=== PATIENT | male | born 1955 | race Caucasian/White ===

== ENCOUNTER → 2018-05-08 | Outpatient (CLI) | payer BC ==
--- NOTE | 2018-05-08 22:28 | MR ---
EXAMINATION TYPE: MR shoulder LT wo con DATE OF EXAM: 05/08/2018 COMPARISON: Plain film 04/18/2018 HISTORY: Pain in left shoulder TECHNIQUE: Multiplanar, multisequence imaging of the left shoulder is performed without contrast. FINDINGS: Rotator Cuff: There is abnormal increased signal involving the rotator cuff, at the level of the inse rtion of the tendon appears attenuated at both the insertion of the supraspinatus and infraspinatus t endons. Acromioclavicular Joint: Hypertrophic change at the acromioclavicular joint causes some mass effect o n the musculotendinous junction of supraspinatus Glenohumeral Joint: Maintained Labrum: The labrum appears grossly intact given limitation of non-arthrogram study. Biceps Tendon: The long head of biceps tendon is not well-defined, coronal image #10 of the T2 data s et shows an attenuated tendon which lies within the bicipital groove. Bone marrow signal: Pseudocysts are present within the humeral head. Other: Distal acromial spur suspected. Small joint effusion is also present, there is fluid along the subscapularis tendon at the musculotendinous junction, fluid signal present in the subacromial subde ltoid bursa IMPRESSION: Correlate for impingement, there is tendinopathy, likely partial thickness tear the rotator cuff tend on.
== END | disposition home or self-care (01) ==
LOC: RADMRIMAIN 19:20
PROVIDERS: ATTEND Orthopaedic Surgery
DX: M67.912 Unspecified disorder of synovium and tendon, left shoulder (principal)

== ENCOUNTER → 2018-05-31 | Outpatient (CLI) | payer BC ==
[2018-05-31 07:14] LABS: Basophils % (A) 1 %; Eosinophils # (A) 0.1 k/uL (0-0.7); Eosinophils % (A) 1 %; HCT 49.1 % (39.0-53.0); HGB 15.3 gm/dL (13.0-17.5); Lymphocytes # (A) 1.2 k/uL (1.0-4.8); Lymphocytes % (A) 23 %; MCH 27.5 pg (25.0-35.0); MCHC 31.2 g/dL (31.0-37.0); Mean Platelet Volume 6.6; Monocytes # (A) 0.4 k/uL (0-1.0); Monocytes % (A) 7 %; Neutrophils # (A) 3.5 k/uL (1.3-7.7); Neutrophils % (A) 66 %; Platelet Count 260 k/uL (150-450); RBC 5.57 m/uL (4.30-5.90); RDW 13.1 % (11.5-15.5); WBC 5.3 k/uL (3.8-10.6)
[2018-05-31 07:23] LABS: Potassium 4.5 mmol/L (3.5-5.1)
== END | disposition home or self-care (01) ==
LOC: LABPAT 06:32
PROVIDERS: ATTEND Orthopaedic Surgery
DX: Z01.812 Encounter for preprocedural laboratory examination (principal); M75.42 Impingement syndrome of left shoulder
CPT/HCPCS: 36415; 80051; 85025

== ENCOUNTER → 2018-06-13 | Day surgery (SDC) | payer BC ==
[2018-06-07 10:14] VITALS: BMI 30.2
--- NOTE | 2018-06-12 18:36 | HP ---
HISTORY AND PHYSICAL DATE OF SURGERY: 06/13/2018 Maik Hopkins is a 63-year-old patient seen with progressive left shoulder pain. We discussed treatment options. He elected to proceed with arthroscopy. Consent was obtained. PAST MEDICAL HISTORY: Noncontributory. PAST SURGICAL HISTORY: Knee arthroscopy. DAILY MEDICATIONS: None. ALLERGIES: NONE REPORTED. SOCIAL HISTORY: Patient denies tobacco use. PHYSICAL EVALUATION OF LEFT SHOULDER: Flexion 140 degrees, abduction 140 degrees. External rotation is 40 degrees with weakness. Tenderness along the anterolateral acromion and rotator cuff insertion site. Impingement sign positive at 90 degrees. Distal neurovascular exam is intact. RADIOGRAPHS: Radiographs were obtained of left shoulder showing type 2 anterior acromion, acromioclavicular joint osteoarthritis, cystic changes of the greater tuberosity. Left shoulder MRI revealed impingement, partial biceps tendon tear, partial rotator cuff tear and acromioclavicular joint osteoarthritis. IMPRESSION: Left shoulder impingement with rotator cuff tear, acromioclavicular joint osteoarthritis and partial biceps tendon tear. PLAN: Left shoulder arthroscopy with subacromial decompression, possible arthroscopic rotator cuff repair, probable Lois procedure and debridement. MMODL / IJN: [id number] /
[~2018-06-13] MED LIST: DEXAMETHASONE SOD PHOSPHATE 10 MG/ML 1 ML VIAL IV ONE; HYDROmorphone 1 MG/ML 1 ML SYRINGE IVP PRN; LACTATED RINGERS 1,000 ML IV ONE; LACTATED RINGERS 1,000 ML IV SCH; LIDOCAINE 1% 20 ML VIAL (10MG/ML) FOR IV START INTRADERMA ONE; LIDOCAINE 1% INJ 10MG/ML (20 ML MDV) ONE; MIDAZOLAM 2 MG/2 ML VIAL IV PRN; ONDANSETRON 4 MG/2 ML VIAL IVP ONE; PHENYLEPHRINE-0.9% NACL SYG 1 MG/10 ML SYRINGE ONE; PROPOFOL 10 MG/ML 20 ML VIAL IV ONE; ROCURONIUM BROMIDE 10 MG/ML 10 ML VIAL IV ONE; ROPIVACAINE 5 MG/ML 30 ML VIAL ONE; SCOPOLAMINE 1.5MG/72HR PATCH TRANSDERM ONE; SUCCINYLCHOLINE CHLORIDE 100 MG/5 ML SYR IV ONE; ceFAZolin IN SWFI 2 GM/20 ML SYRINGE IVP ONE; fentaNYL (PF) 50 MCG/ML 2 ML AMP ONE
--- NOTE | 2018-06-13 09:45 | P.OP ---
Date of Procedure: 06/13/18 Preoperative Diagnosis: Left shoulder impingement Postoperative Diagnosis: 1. Left shoulder rotator cuff tear 2. Left shoulder impingement 3. Left shoulder acromioclavicular joint osteoarthritis 4. Left shoulder partial long head biceps tendon tear Procedure(s) Performed: 1. Left shoulder arthroscopic rotator cuff repair 2. Left shoulder arthroscopic subacromial decompression 3. Left shoulder arthroscopic Lois procedure 4. Left shoulder arthroscopic biceps tenotomy Implants: 4Arthrex swivel lock anchors Anesthesia: GETA, regional (Interscalene block) Surgeon: Ced Devine Sole Stitcher Hand #1: Hung Flores Estimated Blood Loss (ml): 12 Pathology: none sent Condition: stable Disposition: PACU Indications for Procedure: 53-year-old patient seen with progressive left shoulder pain. After having treatment options discussed, he elected to proceed with arthroscopy. Operative Findings: See description of procedure Description of Procedure: Patient underwent an interscalene block by department of anesthesia for postoperative pain control. The patient was then taken to the operative suite. The patient underwent a general anesthetic by the department of anesthesia. The patient was placed into a lateral position and secured. There was appropriate padding of the bony prominence. Left shoulder was then prepped and draped in normal sterile orthopedic fashion. We placed the extremity in 10 pounds of longitudinal traction. A posterior incision was now made for a posterior working portal site. The trocar and cannula were inserted into the glenohumeral joint. Arthroscopy was initiated. Spinal needle was now inserted anteriorly, to ascertain the anterior working portal site. An incision was now made in that area, a trocar was inserted followed by a probe. There was partial tearing long head biceps tendon with hyperemia. There were grade 1 chondromalacia changes of the glenoid with no osteochondral tears. I could visualize a full-thickness rotator cuff tear. The labrum appeared somewhat diminutive but no tears. I performed an arthroscopic biceps tenotomy. The residual labrum/anchor was probed and found to be stable. Instruments now removed from the glenohumeral joint. Utilizing the posterior working portal site, the trocar and cannula were inserted into the subacromial space. Arthroscopy initiated. I made an incision 2 fingerbreadths lateral to the acromion. I introduced my trocar followed by my ArthroCare ablator. I now began ablating thick subacromial bursal tissue, which exposed the undersurface of the anterior acromion. There was diminished subacromial space. There was a very prominent anterior acromion. A motorized bur was introduced and a subacromial decompression was performed. I also excised some osteophytes off the inferior aspect of the distal clavicle. The AC joint was visualized and noted to be fairly arthritic. The motorized bur was introduced in the anterior portal site and a Lois procedure was performed without difficulty, decompressing the AC joint nicely. I turned my attention to the rotator cuff. There was a 2 cm rotator cuff tear. I debrided the margins getting down to stable tendon tissue. The defect now measured approximately 2.5 cm. It was freely mobile over the footprint. I introduced my motorized bur and abraded the footprint area, getting some petechial bleeding. I now made an accessory portal site off the lateral aspect of the acromion. I punched 2 holes medial for medial row fixation with the assistance of Ray KHAN carefully tapping the punch with a mallet as I held the punch and the camera. I now introduced both anchors into the pre-punched holes and Ray KHAN tapped them with the mallet as I held anchors and the camera. Ray KHAN now screwed the anchors in place a while I held the anchor guide and camera. All 8 limbs of suture were now passed through good bites of rotator cuff tendon. I now punched 2 holes for lateral row fixation again I held the punch and camera while Ray KHAN used a mallet to tap in the punch. We now passed sutures through both anchors and individually I introduced the anchors into the pre-punch holes I held the anchor guide in position with one hand holding the camera with the other hand while Ray KHAN tensioned the sutures and screwed in the anchors one at a time. All residual suture limbs were now clipped. We had good compression of the tendon along the entire footprint. I injected 1 mL Renue intra-articular. Instruments now removed from the portal sites. All portal sites were approximated with nylon suture. Sterile dressings were applied followed by a shoulder immobilizer. Hung KHAN assisted in this complex case. The patient was awakened, transferred to a bed, and taken to recovery in stable condition.
[2018-06-13 09:48] VITALS: TEMP 97.2
[2018-06-13 09:58] VITALS: RESP 16
[2018-06-13 11:19] VITALS: PULSE 68
[2018-06-13 11:40] VITALS: BP 129/81
--- NOTE | 2018-06-14 07:08 | P.ONQ ---
Anesthesiology Proc Note - PNB - Peripheral Nerve Block Performed Left Interscalene Single Time Out Performed: Yes Procedure Start Time: 06:57 Procedure Stop Time: 07:09 Indication: Acute Post-Operative Pain, Requested by physician Sedation Type: Sedate with meaningful contact maintained Preparation: Sterile Prep Position: Supine Needle Size: 50mm (2") Needle Gauge: 21 Technique: Ultrasound Injectate: 0.5% Ropivacaine (see comment for volume) (ropi .5% 15cc each side) Blood Aspirated: No Pain Paresthesia on Injection Noted: No Resistance on Injection: Normal Events: Uneventful and Well Tolerated
== END | disposition home or self-care (01) ==
LOC: OR 05:45
PROVIDERS: ATTEND Orthopaedic Surgery
DX: M75.122 Complete rotator cuff tear or rupture of left shoulder, not specified as traumatic (principal); M75.42 Impingement syndrome of left shoulder; M19.012 Primary osteoarthritis, left shoulder; S46.112A Strain of muscle, fascia and tendon of long head of biceps, left arm, initial encounter; X58.XXXA Exposure to other specified factors, initial encounter; M94.212 Chondromalacia, left shoulder; M25.712 Osteophyte, left shoulder; Z79.899 Other long term (current) drug therapy
CPT/HCPCS: 64415; 29824; 29827; 29826; C1713 ×4; C1765; J2250; J2405; J2001; J3010; J2795; J2370; J0330; J2704; J0690

== ENCOUNTER → 2019-06-18 | Outpatient (CLI) | payer BC ==
--- NOTE | 2019-06-19 02:35 | MR ---
EXAMINATION TYPE: MR knee LT wo con DATE OF EXAM: 06/18/2019 COMPARISON: None HISTORY: Pain in left knee TECHNIQUE: Multiplanar, multisequence imaging of the left knee is performed without IV contrast. FINDINGS: The anterior and posterior cruciate ligaments are intact. There is mild knee joint effusion. The late ral meniscus shows very minimal increased signal on the infra surface of the posterior horn. There is horizontal tear with significant thinning of the posterior horn of the medial meniscus. Ther e is intrasubstance horizontal tear of the anterior horn medial meniscus. There is some narrowing of the medial joint space. The collateral ligaments appear intact. There is no evidence of a fracture. T here is no bony destructive process. Patellofemoral joint is intact. There is rounded 12 mm area of b one at the posterior aspect of the lateral femoral condyle that appears outside of the joint and coul d be an osteophyte. IMPRESSION: Osteoarthritic narrowing of the medial joint space. Horizontal tears of the posterior horn and anteri or horn of the medial meniscus with meniscal thinning. No evidence of ligamentous tear. No fracture. Joint effusion. Small 2.5 x 0.8 cm popliteal cyst noted.
== END | disposition home or self-care (01) ==
LOC: RADMRIMAIN 18:47
PROVIDERS: ATTEND Orthopaedic Surgery
DX: M17.12 Unilateral primary osteoarthritis, left knee (principal); S83.242A Other tear of medial meniscus, current injury, left knee, initial encounter

== ENCOUNTER → 2019-07-15 | Outpatient (CLI) | payer BC ==
[2019-07-15 17:43] LABS: Potassium 4.3 mmol/L (3.5-5.1)
[2019-07-15 18:08] LABS: Basophils # (A) 0.1 k/uL (0-0.2); Basophils % (A) 1 %; Eosinophils # (A) 0.2 k/uL (0-0.7); Eosinophils % (A) 2 %; HCT 45.3 % (39.0-53.0); HGB 14.6 gm/dL (13.0-17.5); Lymphocytes # (A) 1.5 k/uL (1.0-4.8); Lymphocytes % (A) 23 %; MCH 28.1 pg (25.0-35.0); MCHC 32.3 g/dL (31.0-37.0); MCV 87.1 fL (80.0-100.0); Mean Platelet Volume 6.5; Monocytes # (A) 0.4 k/uL (0-1.0); Monocytes % (A) 6 %; Neutrophils # (A) 4.4 k/uL (1.3-7.7); Neutrophils % (A) 66 %; Platelet Count 305 k/uL (150-450); RDW 12.8 % (11.5-15.5); WBC 6.7 k/uL (3.8-10.6)
== END | disposition home or self-care (01) ==
LOC: LABPAT 16:26
PROVIDERS: ATTEND Orthopaedic Surgery
DX: Z01.812 Encounter for preprocedural laboratory examination (principal); M23.92 Unspecified internal derangement of left knee
CPT/HCPCS: 36415; 80051; 85025

== ENCOUNTER 2019-07-17 12:50 | Day surgery (SDC) | payer BC ==
[2019-07-15 12:42] VITALS: BMI 31.1
--- NOTE | 2019-07-16 14:10 | HP ---
HISTORY AND PHYSICAL DATE OF SERVICE: 07/17/2019 Maik Hopkins is a 64-year-old patient seen with progressive left knee pain. We discussed options for treatment. He elected to proceed with left knee arthroscopy. Consent was obtained. PAST MEDICAL HISTORY: Noncontributory. PAST SURGICAL HISTORY: Left knee arthroscopy, left for surgery. DAILY MEDICATIONS: None. SOCIAL HISTORY: Denies current tobacco use. PHYSICAL EVALUATION OF THE LEFT KNEE: His range of motion is 0-130. Mild effusion. Tenderness along the medial joint line, tenderness on lateral joint line. Positive medial Tino's. Positive lateral Tino's. Ligaments stable. Hip rotation without pain. Distal neurovascular exam is intact. RADIOGRAPHS OF THE LEFT KNEE: Revealed moderate medial and moderate patellofemoral compartment osteoarthritis. MRI of the left knee revealed medial meniscal tear and osteoarthritis. IMPRESSION: 1. Internal derangement, left knee with medial meniscal tear. 2. Left knee osteoarthritis. PLAN: Left knee arthroscopy with partial meniscectomy and debridement. MMODL / IJN: [id number] /
[~2019-07-17 12:50] MED LIST changes: -DEXAMETHASONE SOD PHOSPHATE 10 MG/ML 1 ML VIAL IV ONE; +HYDROmorphone 0.5 MG/0.5 ML SYRINGE IVP PRN; -HYDROmorphone 1 MG/ML 1 ML SYRINGE IVP PRN; -LACTATED RINGERS 1,000 ML IV ONE; -LIDOCAINE 1% 20 ML VIAL (10MG/ML) FOR IV START INTRADERMA ONE; -LIDOCAINE 1% INJ 10MG/ML (20 ML MDV) ONE; -MIDAZOLAM 2 MG/2 ML VIAL IV PRN; -ONDANSETRON 4 MG/2 ML VIAL IVP ONE; +ONDANSETRON 4 MG/2 ML VIAL IVP PRN; -PHENYLEPHRINE-0.9% NACL SYG 1 MG/10 ML SYRINGE ONE; -PROPOFOL 10 MG/ML 20 ML VIAL IV ONE; -ROCURONIUM BROMIDE 10 MG/ML 10 ML VIAL IV ONE; -ROPIVACAINE 5 MG/ML 30 ML VIAL ONE; -SCOPOLAMINE 1.5MG/72HR PATCH TRANSDERM ONE; -SUCCINYLCHOLINE CHLORIDE 100 MG/5 ML SYR IV ONE; -ceFAZolin IN SWFI 2 GM/20 ML SYRINGE IVP ONE; -fentaNYL (PF) 50 MCG/ML 2 ML AMP ONE
[2019-07-17] MEDS ORDERED: LIDOCAINE 1% 20 ML VIAL (10MG/ML) FOR IV START INTRADERMA ONE (13:32)
[2019-07-17] MEDS ORDERED: MIDAZOLAM 2 MG/2 ML VIAL IV ONE (13:58)
[2019-07-17] MEDS ORDERED: PROPOFOL 10 MG/ML 20 ML VIAL IV ONE (14:32)
[2019-07-17] MEDS ORDERED: LIDOCAINE 1% INJ 10MG/ML (20 ML MDV) ONE (14:32)
[2019-07-17] MEDS ORDERED: SUCCINYLCHOLINE CHLORIDE 100 MG/5 ML SYR IV ONE (14:32)
[2019-07-17] MEDS ORDERED: fentaNYL (PF) 50 MCG/ML 2 ML AMP ONE (14:32)
[2019-07-17] MEDS ORDERED: MIDAZOLAM 2 MG/2 ML VIAL ONE (14:32)
[2019-07-17] MEDS ORDERED: BUPIVACAINE (PF) 0.25% 30 ML VIAL SQ ONE ×2 (14:42→15:09)
[2019-07-17] MEDS ORDERED: LACTATED RINGERS 1,000 ML IV ONE (15:00)
--- NOTE | 2019-07-17 15:23 | P.OP ---
Date of Procedure: 07/17/19 Preoperative Diagnosis: Internal derangement left knee Postoperative Diagnosis: 1. Tear medial meniscus left knee 2. Grade 2 chondromalacia medial femoral condyle left knee 3. Reactive synovitis medial, lateral and suprapatellar compartments left knee Procedure(s) Performed: 1. Arthroscopic partial medial meniscectomy left knee 2. Arthroscopic chondroplasty medial femoral condyle left knee 3. Arthroscopic partial synovectomy medial, lateral and suprapatellar compartments left knee Anesthesia: KATHERINEA, local Surgeon: Ced Devine Estimated Blood Loss (ml): 6 Pathology: none sent Condition: stable Disposition: PACU Indications for Procedure: 64-year-old patient seen with progressive left knee pain. After treatment options were discussed, he elected to proceed with arthroscopy. Operative Findings: See description of procedure Description of Procedure: Patient was taken to the operative suite. Patient underwent a general anesthetic by the department of anesthesia. Patient was given preoperative antibiotics. The left lower extremity was placed in a well-padded arthroscopic leg drummond. The left leg was prepped and draped in the normal sterile orthopedic fashion. A lateral parapatellar and suprapatellar incision was made. Trochars were inserted. Arthroscopy was initiated. Suprapatellar pouch revealed diffuse thick reactive synovitis. The patellofemoral joint appeared to articulate congruently. There was grade 1 chondromalacia with no osteochondral tears present. The scope was guided into the medial gutter. No loose bodies or plica were identified The scope was then guided into the medial compartment. A medial parapatellar incision was made. Trocar inserted followed by probe. There was a radial tear involving the medial meniscus. There were grade 2 chondromalacia changes of the medial femoral condyle with some osteochondral tears present. There was thick reactive synovitis anteriorly. I performed a partial medial meniscectomy getting down to stable tissue. I performed a c hondroplasty of the medial femoral condyle down to stable tissue. I performed a partial synovectomy decompressing the reactive synovitis. The residual meniscus was stable. The residual osteochondral surface was stable. There was good decompression of the synovitis. Scope and probe were then guided into the intercondylar notch. Cruciates were identified, probed and found to be stable. The scope and probe were then guided into lateral compartment. The lateral meniscus was probed and found be stable. There was some reactive synovitis anteriorly. There were mild grade 1 chondral malacia changes of the femoral condyle. I performed a partial synovectomy decompressing the reactive synovitis. There was good decompression of the synovitis. The scope was in guided back into the suprapatellar compartment. I introduced a motorized shaver into the super patellar compartment. I debrided some piecemeal fragments of meniscus I encountered. I performed a partial synovectomy decompressing the reactive synovitis. The shaver was removed. I took one more look on the entire knee. No residual debris was identified. Instruments were now removed from the joint. The joint was infiltrated with .25% Marcaine. Steri-Strips were applied to the portal sites. Sterile dressings were applied. The patient was placed into a KYLEE hose. No tourniquet was utilized. The patient was awakened, transferred to a bed and taken to recovery stable satisfactory condition.
[2019-07-17 15:27] VITALS: TEMP 96.8
[2019-07-17 16:26] VITALS: RESP 18
[2019-07-17 17:23] VITALS: BP 123/76; PULSE 78
== END 2019-07-17 17:34 | disposition home or self-care (01) ==
LOC: OR 12:50
PROVIDERS: ATTEND Orthopaedic Surgery
DX: S83.242A Other tear of medial meniscus, current injury, left knee, initial encounter (principal); M94.262 Chondromalacia, left knee; M65.862 Other synovitis and tenosynovitis, left lower leg; M17.12 Unilateral primary osteoarthritis, left knee; Z98.890 Other specified postprocedural states; Z90.49 Acquired absence of other specified parts of digestive tract; X58.XXXA Exposure to other specified factors, initial encounter
CPT/HCPCS: 29881; 29876; J2250; J0690; J2405; J2001; J3010; J0330; J2704

== ENCOUNTER 2020-02-02 14:42 | Emergency (ER) | payer BC ==
[2020-02-02 15:18] VITALS: BP 137/82; PULSE 67; RESP 18; TEMP 98.6
[2020-02-02] MEDS ORDERED: DIPH,PERTUS(ACELL)TETVAC-LF 0.5 ML VIAL IM ONE (15:30)
[2020-02-02] MEDS ORDERED: AMOXIC-POT CLAV 875MG STARTER PACK 2 TAB BTL PO STA (15:30)
[2020-02-02] MEDS ORDERED: GELATIN SPONGE,ABSORB (SMALL) 1 EACH SPONGE TOPICAL STA (15:55)
--- NOTE | 2020-02-02 16:14 | ED ---
Wound/Laceration HPI - General Chief Complaint: Wound/Laceration Stated Complaint: Finger laceration Time Seen by Provider: 02/02/20 15:20 Source: patient Mode of arrival: ambulatory Limitations: no limitations - History of Present Illness Initial Comments: 64-year-old male presenting today for chief complaint of left fourth digit laceration. He states he was attempting to remove the stick from a dog's mouth when his finger ran across the dog's tooth causing laceration. He denies dog attack he states dog's vaccinations are up-to-date denies any concern for rabies. Denies abnormal behaviors. Patient states her Zantac. Patient states that the wound would not stop he denies Y presents emergency Department remaining review of system negative - Related Data Previous Rx's Medication Instructions Recorded traMADol HCl [Ultram] 50 mg PO Q6H PRN #12 tab 07/17/19 Amoxic-Pot Clav 875-125Mg 1 tab PO Q12HR 5 Days #10 tab 02/02/20 [Augmentin 875-125] Allergies Allergy/AdvReac Type Severity Reaction Status Date / Time No Known Allergies Allergy Verified 02/02/20 15:19 Review of Systems ROS Statement: Those systems with pertinent positive or pertinent negative responses have been documented in the HPI. ROS Other: All systems not noted in ROS Statement are negative. Past Medical History Past Medical History: No Reported History History of Any Multi-Drug Resistant Organisms: None Reported Past Surgical History: Appendectomy, Hernia Repair Additional Past Surgical History / Comment(s): L knee arthroscopy, hernia repair x2, Rotator cuff surgery. Past Anesthesia/Blood Transfusion Reactions: No Reported Reaction Past Psychological History: No Psychological Hx Reported Smoking Status: Never smoker Past Alcohol Use History: Occasional Past Drug Use History: None Reported - Past Family History Mother Family Medical History: No Reported History Sister(s) Additional Family Medical History / Comment(s): Brain tumor General Exam - General Exam Comments Initial Comments: General: The patient is awake and alert, in no distress, and does not appear acutely ill. Eye: Pupils are equal, round and reactive to light, extra-ocular movements are intact. No nystagmus. There is normal conjunctiva bilaterally. No signs of icterus. Musculoskeletal: Normal ROM, no tenderness MCP DIP and PIP joints. Strength 5/5. Sensation intact. Pulses equal bilaterally 2+. Neurological: A&O x 3. CN II-XII intact, There are no obvious motor or sensory deficits. Coordination appears grossly intact. Speech is normal. Skin: Skin is warm and dry and no [id number] superficial laceration of the finger pad of the 4th digit left hand. mild oozing active bleeding, no heavy bleeding, no FB identified. Psychiatric: Cooperative, appropriate mood & affect, normal judgment. Limitations: no limitations Course Vital Signs 02/02/20 15:15 Temperature 98.6 F Pulse Rate 67 Respiratory 18 Rate Blood Pressure 137/82 O2 Sat by Pulse 96 Oximetry Medical Decision Making - Medical Decision Making Given the laceration was sustained from a dog's tooth will not be closed is relatively superficial is not gaping. It is small in nature. gel foam applied, bleeding controlled. augmentin initiated, infection risk discussed. Tetanus updated. Return parameters discussed, signs of infection discussed patient discharged appearing well. Disposition Clinical Impression: Finger laceration, Dog bite Disposition: HOME SELF-CARE Condition: Good Instructions (If sedation given, give patient instructions): Animal Bite (ED) Additional Instructions: Please use medication as discussed. Please follow-up with family doctor in the next 2 days. Please return to emergency room if the symptoms increase or worsen or for any other concerns. Prescriptions: Amoxic-Pot Clav 875-125Mg [Augmentin 875-125] 1 tab PO Q12HR 5 Days #10 tab Is patient prescribed a controlled substance at d/c from ED?: No Referrals: Alecia Swan MD [Primary Care Provider] - 1-2 days Time of Disposition: 16:14
--- NOTE | 2020-02-02 16:39 | XR ---
EXAMINATION TYPE: XR finger LT DATE OF EXAM: 02/02/2020 COMPARISON: NONE HISTORY: Finger laceration of the left ring finger TECHNIQUE: 3 views of the left ring finger/fourth digit were obtained. FINDINGS/IMPRESSION: No radiopaque foreign body seen. No acute fracture or dislocation of the left fo urth digit. No subcutaneous emphysema noted.
== END 2020-02-02 16:28 | disposition home or self-care (01) ==
LOC: EC 14:42
DX: S61.215A Laceration without foreign body of left ring finger without damage to nail, initial encounter (principal); S61.255A Open bite of left ring finger without damage to nail, initial encounter; Z23 Encounter for immunization; W54.0XXA Bitten by dog, initial encounter
CPT/HCPCS: 90471; 90715; 99283